=== PATIENT | female | born 1945 | race Caucasian/White ===

== ENCOUNTER 2016-12-15 13:52 | Emergency (ER) | payer OTHER ==
[~2016-12-15] VITALS: Ht 147.3 cm; Wt 52.2 kg
[~2016-12-15 13:52] MED LIST: BUSP10TA3 PO; CLON1TAB PO; PAX20 PO; PRIM50TA13 PO; VENL37.55 PO
[2016-12-15 13:54] VITALS: BP 125/92
--- NOTE | 2016-12-15 14:01 | NUR ---
Patient ambulated to bed 12 with family. RN evaluating patient at bedside.
--- NOTE | 2016-12-15 14:10 | NUR ---
71 YO FEMALE BIB FAMILY FOR ANXIETY/PANIC ATTACK THAT OCCURED TODAY. RR ARE TACHYPENIC AND UNLABORED; PT DENIES ANY TINGLING AND NUMBNESS; PT IS AOX4; DENIES N/V/D; SKIN IS PINK/WARM/DRY; PATIENT STATES PAIN OF 0/10 AT THIS TIME; VSS; PATIENT POSITIONED FOR COMFORT; HOB ELEVATED; BED DOWN. JOELLEN SAMUELS MADE AWARE OF PT STATUS. Addendum: 12/15/16 at 1448 by CHRISTINA 71 YO FEMALE BIB FAMILY FOR ANXIETYX 3 DAYS. RR ARE TACHYPENIC AND UNLABORED; PT DENIES ANY TINGLING AND NUMBNESS; PT IS AOX4; DENIES N/V/D; SKIN IS PINK/WARM/DRY; PT ALSO C/O 10/10 "ALL OVER YOUNG" AND EPIGASTRIC PAIN; VSS; PATIENT POSITIONED FOR COMFORT; HOB ELEVATED; BED DOWN. JOELLEN SAMUELS MADE AWARE OF PT STATUS.
--- NOTE | 2016-12-15 14:22 | NUR ---
Dr. Ly evaluating patient at bedside.
[2016-12-15] MEDS ORDERED: KETOROLAC 60 MG/2 ML VIAL IM ONE (14:30)
[2016-12-15] MEDS ORDERED: DICYCLOMINE HCL LIQUID 20 MG, ALUMINUM HYD/MAG/SIMETHICONE 30 ML, LIDOCAINE VISCOUS 2% ... PO ONE ×3 (15:25)
[2016-12-15 16:05] VITALS: BP 134/84
--- NOTE | 2016-12-15 16:05 | NUR ---
Patient discharged with v/s stable. Written and verbal after care instructions given and explained. Patient alert, oriented and verbalized understanding of instructions. Ambulatory with steady gait. All questions addressed prior to discharge. ID band removed. Patient advised to follow up with PMD. Rx of Prilosec given. Patient educated on indication of medication including possible reaction and side effects. Opportunity to ask questions provided and answered.
== END 2016-12-15 16:05 | disposition home or self-care (01) ==
LOC: MED 13:52
DX: F41.9 Anxiety disorder, unspecified (principal); R10.13 Epigastric pain; R51 Headache; Z90.49 Acquired absence of other specified parts of digestive tract; Z79.899 Other long term (current) drug therapy
CPT/HCPCS: 96372; 99284; J1885